=== PATIENT | female | born 1980 | race African-American/Black ===

== ENCOUNTER 2023-02-25 08:08 | Outpatient (CLI) | payer OTHER, SELFPAY ==
[2023-02-25 08:37] LABS: Hematocrit 37.7 % (37.0-47.0); Hemoglobin 11.7 g/dL (12.0-15.0); Mean Corpuscular Hemoglobin 26.3 pg (26-34); Mean Corpuscular Volume 84.7 fl (80-100); Mean Platelet Volume 8.9 fl (7.4-10.4); Platelet Count Result 445 k/mm3 (150-375); Red Blood Count 4.45 M/mm3 (4.2-5.4); Red Cell Distribution Width 15.2 % (11.5-14.5); White Blood Count 5.9 K/mm3 (4.5-10.0)
== END 2023-02-25 08:09 | disposition home or self-care (01) ==
LOC: ANHSURGERY 08:13
PROVIDERS: Visit Provider Student in an Organized Health Care Education/Training Program
DX: Z01.812 Encounter for preprocedural laboratory examination (principal); N83.209 Unspecified ovarian cyst, unspecified side
CPT/HCPCS: 36415; 85027; 86850; 86900; 86901

== ENCOUNTER 2023-02-27 00:50 | Day surgery (SDC) | payer OTHER, SELFPAY ==
[2023-02-19 14:57] VITALS: BMI 32.3
--- NOTE | 2023-02-19 15:01 | PC.NURSE ---
Report to the Outpatient Waiting Room, entrance under the green pavilion located off [facility], at time 12:00 on date 02/27/23. Planned Procedure Time: 2:00. Time changes happen often and if your time is changed the preop area will call you the afternoon before. - You and your visitor will be asked to self-screen and do not enter if you have any COVID symptoms. - A mask is optional within the hospital at this time. Patients may have clear liquids (water, carbonated beverages, clear teas, apple juice) until 3 hours prior to surgery (11:00) with a maximum of 20 ounces. - No food from midnight until time of surgery Take the following medications with a SIP of water the morning of surgery: PAIN PILL IF NEEDED DO NOT STOP ANY OF YOUR OTHER PRESCRIPTION MEDICATIONS PRIOR TO SURGERY EXCEPT THE FOLLOWING Medications to discontinue per physician: IBUPROFEN Date to take last dose: PER DR. DE LEON Please no make-up, nail ukrainian, hairspray, perfume, deodorant, or body powder the day of surgery. No jewelry (including any body piercings) or valuables the day of surgery, leave them at home. Please take a shower or bath the night before, or the morning of, surgery with an antibacterial soap. Wear comfortable, loose fitting clothing. - Jewelry must be removed prior to entering the operating room. Rings and piercings that are not removed may be cut off. - The hospital will not accept responsibility for valuables. - Please leave all valuables, including medications, at home the day of surgery. If you are going home after surgery, a licensed tow car driver must drive you home. - NO public transportation without another adult if you receive anesthesia. - We recommend that an adult stay with you for 24 hours following discharge. - We also recommend that you do not drive, make important decision, drink alcoholic beverages, or take any drugs that were not prescribed by your health care provider for at least 24 hours after your discharge time. Follow any additional instructions given to you from your surgeon. If you or anyone in your household have experienced Covid symptoms in the past week, please notify your surgeon or the nurse liaison at the phone number below for possible testing. Telephone instructions given to PT - TREY SOLIS and asked if any additional questions and then verbalized understanding. Patient advised to call surgeon office or pre surgery nurse liaison [phone] if any additional questions.
[2023-02-27] VITALS (9 sets, daily range): BP systolic 108–159; BP diastolic 66–96; PULSE 87–113; RESP 12–30; TEMP 36.3; O2SAT 100; BMI 32.5
--- NOTE | 2023-02-27 07:45 | PM.IMHP ---
H&P: HPI History of Present Illness Date/Time: 02/27/23 07:45 Chief Complaint: pelvic pain ovarian cyst Narrative: 42-year-old female who presents for laparoscopic ovarian cystectomy. Patient was seen in the office and complained of pelvic pain. Patient was also having heavy and painful menses. Pelvic ultrasound shows an enlarged cyst on the left ovary. Images suspicious for possible endometrioma. Patient was also found to have uterine fibroids. Review of Systems Cardiovascular: Cardiovascular: Denies chest pain, Denies leg edema, Denies palpitations, Denies dyspnea and Denies dyspnea on exertion Respiratory: Respiratory: Denies cough, Denies dyspnea and Denies dyspnea on exertion Gastrointestinal: Gastrointestinal: Denies abdominal pain, Denies constipation, Denies diarrhea, Denies nausea and Denies vomiting Genitourinary: Genitourinary: Denies hematuria, Denies urinary frequency, Denies dysuria, Denies pelvic pain, Denies urinary incontinence and Denies vaginal discharge Neurologic: Reports system reviewed and no additional complaints, except as documented Psychiatric: Psychiatric: Reports no additional psychiatric complaints Endocrine: Endocrine: Denies palpitations PMFSH Past Medical History Medical History Screening for breast cancer Surgical History Surgical History History of delivery Family History Family History Other Breast cancer Social History Social History Smoking status: Current every day smoker Tobacco type: e-cigarettes/vaping Alcohol intake: current Alcohol use details: RARE Substance use: current Substance use type: marijuana Living arrangements: with family Additional living arrangements comments: CHILDREN Occupation/Education: occupation Gender identity (if verbalized by the patient): Female Sexual Orientation (if Verbalized by the Patient): Straight or Heterosexual Spiritual care concerns: No Meds Home Medications and Allergies Home Medications Medication Instructions Recorded Confirmed Type hydrocodone 5 mg-acetaminophen 325 1 tablet PO Q8H PRN pain #28 tabs 01/16/23 02/19/23 Rx mg tablet ibuprofen 600 mg tablet 600 mg PO QID PRN Pain 02/19/23 02/19/23 History Allergies Allergy/AdvReac Type Severity Reaction Status Date / Time Penicillins Allergy Mild Hives Verified 02/19/23 14:56 Exam Const: General: no acute distress Eyes: EOM: EOMs intact bilaterally Neck: Neck: supple Thyroid: thyroid normal Chest: Breast/axilla inspection: normal inspection of the breasts Breast/axilla palpation: normal palpation of the breasts, normal palpation of the axillae and no axillary lymphadenopathy Resp: Effort & Inspection: normal respiratory effort Auscultation: clear to auscultation bilaterally Cardio: Rate: regular rate Rhythm: regular rhythm GI: Inspection: non-distended GI Palp: Yes Soft to palpation, No Tenderness to palpation present (GI) and No Guarding due to palpation present (GI) Auscultation: normal bowel sounds : General: No bladder normal to palpation External Female Exam: normal external appearance Speculum Exam - Vagina: normal vaginal discharge and No vaginal bleeding Speculum Exam - Cervix: nontender Bimanual exam- vagina & uterus: No bladder normal to palpation and No Cervical tenderness present OB/external & speculum: No vaginal bleeding Skin: General skin exam: normal color and no rashes or lesions noted Neuro: Cognition (Neuro): normal cognition Speech: normal speech Extrem: General: normal to inspection and no edema Psych: Mental Status: mental status grossly normal Affect: normal affect Assessment and Plan Assessment and plan (1) Ovarian cyst: Code(s): N83.209 - Unspeci
--- NOTE | 2023-02-27 07:52 | WPDHPUPDATE1 ---
History and Physical Update Update Date/Time: 02/27/23 07:52 History and Physical has been reviewed, including an updated exam of the patient. There are NO changes in the patient's condition. Risks, benefits, and alternatives have been discussed and questions answered. Patient agrees to proceed with procedure.
[2023-02-27] MEDS: LACTATED RINGERS 1,000 ML 30 ML IV CONT ×2 (11:55→15:21)
--- NOTE | 2023-02-27 12:06 | WPDANESEPPF ---
Anes - Initial Pre Proc Eval Procedure: Operation Date: 02/27/23 13:00 Proposed Procedures p Laparoscopic Left Ovarian Cystectomy - Adalid Abbott MD Date/Time: 02/27/23 12:06 Surgeon: Adalid Abbott MD Pre Op Diagnosis: left ovarian cyst Patient Data Age: 42 Gender: F Height: 1.71 m Weight: 95.25 kg Allergies Allergy/AdvReac Type Severity Reaction Status Date / Time Penicillins Allergy Mild Hives Verified 02/27/23 12:07 Home Medications Medication Instructions Recorded Confirmed Type hydrocodone 5 mg-acetaminophen 325 1 tablet PO Q8H PRN pain #28 tabs 01/16/23 02/19/23 Rx mg tablet ibuprofen 600 mg tablet 600 mg PO QID PRN Pain 02/19/23 02/19/23 History Patient hx anesthesia problems: none Family hx anesthesia problems: none Results Review: All pre-operative results and documents have been reviewed as part of the pre-operative evaluation. [facility] Past Medical History Medical History (Updated 02/27/23 @ 12:06 by Sunny Collazo MD) Diabetes Obesity Screening for breast cancer Surgical History Surgical History History of delivery Family History Family History Other Breast cancer Social History Social History Smoking status: Current every day smoker Tobacco type: e-cigarettes/vaping Alcohol intake: current Alcohol use details: RARE Substance use: current Substance use type: marijuana Living arrangements: with family Additional living arrangements comments: CHILDREN Occupation/Education: occupation Gender identity (if verbalized by the patient): Female Sexual Orientation (if Verbalized by the Patient): Straight or Heterosexual Spiritual care concerns: No Anes - Eval Final PreProcedure Day of Procedure 02/27/23 12:06 Patient weight: obese Heart: regular rate and rhythm Lungs: clear to auscultation Airway: Mallampati scale class II Neurological: alert and oriented Last oral intake: >/= 8 hours ASA classification: II Emergent: no Anesthetic plan: proceed Anesthesia type and monitoring: general LMA and standard monitoring Results Review: All pre-operative results and documents have been reviewed as part of the pre-operative evaluation. Informed Consent: The patient's anesthetic plan and its attendant risks and benefits were discussed with the patient/family/POA. Questions were solicited and answers provided to the satisfaction of the patient/family/POA.
[2023-02-27] MEDS: KETOROLAC 15 MG/ML VIAL (*BKC) IV PUSH (12:12)
[2023-02-27] MEDS: SCOPOLAMINE 1.5 MG PATCH TRANSDERM ×2 (12:13→15:55)
[2023-02-27] MEDS: ACETAMINOPHEN 500 MG TABLET 1000 MG PO (12:13)
[2023-02-27] MEDS: LIDO 1%/EPINEPHRINE 1:100,000 50 ML VIAL 20 ML INFILTRATE (13:39)
--- NOTE | 2023-02-27 14:31 | W.PM.PROC2 ---
Procedure Note - Detailed Date of Procedure 02/27/23 Pre-op Diagnosis left ovarian cyst Post-op Diagnosis Same Procedure Performed left oophorectomy Surgeon Adalid Abbott MD Anesthesia General Indications enlarged left ovarian cyst Findings left sided endometrioma dense adhesive disease endometriosis fibroid uterus Description of Procedure The patient was taken to the operating room where general endotracheal anesthesia was undertaken and found to be adequate. She was then prepped and draped in the dorsal lithotomy position and placed in adjustable stirrups. A pre-operative team brief and a time out were completed. A catheter was placed to drain the bladder. Retractors were placed placed in the vagina and the cervix was identified. An acorn uterine manipulator was placed. {Attention was then turned to the abdomen which was anesthetized umbilically with injected anesthestic. A 5 mm skin incision was made in the umbilicus. A 5 mm optical trocar was then placed with direct camera visualization of the abdominal layers during placement. The trocar stylet was removed and the camera was used to verify intra-abdominal placement. CO2 insufflation was then connected and resumed. The pelvis was inspected. A left lower quadrant 5 mm port was placed, in addition to a right lower quadrant 5 port in the standard fashion after using local anesthetic. The pelvis was inspected. The above findings were noted. The left ovary was enlarged. The ovarian cyst was adherent in the ovarian fossa and to the uterine serosa. There were omental adhesions loosely to the ovarian capsule. Adhesions were taken down sharply and bluntly with monopolar scissors. An incision was made over the ovarian capsule and into the cyst wall. Dark brown chocolate like fluid was extracted from the cyst. After the cyst was drained, attempt was made to pull the cyst wall from the ovarian capsule. After incision of the ovarian capsule, visualization was inhibited due to bleeding. visualization and full manipulation of the ovary was limited by adhesive disease. Given the ovarian involvement of the cyst and the adhesions to the ovarian fossa, decision was made to proceed with oophorectomy. The peritoneum was the left side wall was opened. The left infundibulopelvic ligamnet was identified. The ligament was ligated and transected using the ligasure device. Dissection away from the adhesions and the pelvic side was was continued around the cyst with the ligasure device. The ovary and cyst was from the ovarian artery and uterus. The umbilical incision was converted to a 10 mm incision and an endopoush was introduced. The specimen was removed from the abdomen through the umbilical port in a endopouch. The surgical site was inspected. There was oozing blood noted that was made hemostatic with hemaderm. The pelvis was copiously irrigated and cleared of all clot and debris. All surgical beds were noted to be hemostatic. A Bret-Meaghan was used to closed the umbilical fascial defect with an interrupted suture of 0-vicryl under direct visualization. Sponge, lap and needle counts were correct. All skin incisions were closed with 4-0 Vicryl suture subcuticularly. The uterine manipulator was removed from the uterus. Hemostasis of the cervix was noted. The urinary catheter was removed. The patient was taken out of dorsal lithotomy position. Anesthesia was reversed. The patient was taken to the PACU. Estimated Blood Loss 100 Urine Output 25 Drains No Packing No Pathology Yes (left ovary and ovarian cyst) Complications No immediate complications Condition Stable Disposition PACU [facility] Billing Surgery - Charge Forward: Surgery Billing
[2023-02-27] MEDS: fentaNYL CITRATE INJ (*CRX) 100 MCG/2 ML VIAL 25 MCG IV PUSH ×4 (15:00→16:05)
[2023-02-27] MEDS: ONDANSETRON INJ 4 MG/2 ML VIAL IV PUSH (15:12)
[2023-02-27] MEDS: HALOPERIDOL LACTATE 5 MG/ML VIAL 1 MG IV PUSH (15:53)
--- NOTE | 2023-02-27 16:06 | SUR.PHASEI ---
RN didn't realize patient already had a scop patch on behind left ear. So that patch was coming off so the new patch is behind the Right ear.
== END 2023-02-27 17:10 | disposition home or self-care (01) ==
PROVIDERS: Visit Provider Student in an Organized Health Care Education/Training Program
PROC: (CPT 49320; principal; 2023-02-27 13:00)
DX: N83.12 Corpus luteum cyst of left ovary (principal); N80.102 Endometriosis of left ovary, unspecified depth; N73.6 Female pelvic peritoneal adhesions (postinfective); E11.9 Type 2 diabetes mellitus without complications; E66.9 Obesity, unspecified; Z68.32 Body mass index [BMI] 32.0-32.9, adult; F17.290 Nicotine dependence, other tobacco product, uncomplicated; F12.90 Cannabis use, unspecified, uncomplicated
CPT/HCPCS: 58661; 88305; A9270; J0360; J1100; J1630; J1885; J2250; J2405; J2704; J2710; J3010; J7030; J7120

== ENCOUNTER 2024-07-05 12:37 | Outpatient (CLI) | payer OTHER, SELFPAY ==
[2024-07-05 14:09] LABS: Hematocrit 36.9 % (37.0-47.0); Hemoglobin 11.2 g/dL (12.0-15.0); Mean Corpuscular HGB Conc 30.4 g/dl (32-36); Mean Corpuscular Hemoglobin 25.3 pg (26-34); Mean Corpuscular Volume 83.5 fl (80-100); Mean Platelet Volume 9.6 fl (7.4-10.4); Platelet Count Result 401 k/mm3 (150-375); Red Blood Count 4.42 M/mm3 (4.2-5.4); Red Cell Distribution Width 16.2 % (11.5-14.5); White Blood Count 6.7 K/mm3 (4.5-10.0)
== END 2024-07-05 12:38 | disposition home or self-care (01) ==
PROVIDERS: Visit Provider Student in an Organized Health Care Education/Training Program
DX: N93.9 Abnormal uterine and vaginal bleeding, unspecified (principal); Z01.818 Encounter for other preprocedural examination
CPT/HCPCS: 36415; 85027; 86850; 86900; 86901

== ENCOUNTER 2024-07-06 02:24 | Day surgery (SDC) | payer OTHER, SELFPAY ==
[2024-06-28 11:33] VITALS: BMI 30.6
--- NOTE | 2024-06-28 11:34 | PC.NURSE ---
Report to the Outpatient Waiting Room, entrance under the green pavilion located off [facility], at time _1130_ on date _[id number]_. Planned Procedure Time: _130pm_.? Time changes happen often and if your time is changed the preop area will call you the afternoon before. - You and your visitor will be asked to self-screen and do not enter if you have any COVID symptoms. Please call surgeon if you need to reschedule. - A mask is optional within the hospital at this time. Patients may have clear liquids (water, carbonated beverages, clear teas, apple juice) until 3 hours prior to surgery with a maximum of 20 ounces. - No food from midnight until time of surgery and no smoking Take only the following medications with a SIP of water on the morning of surgery: ___Slynd DO NOT STOP ANY OF YOUR OTHER PRESCRIPTION MEDICATIONS PRIOR TO SURGERY EXCEPT THE FOLLOWING Medications to discontinue per physician ____Vitamin E and Vitamin D3 Date to take last lfjo___[id number] Please no make-up, nail bolivian, hairspray, perfume, deodorant, or body powder the day of surgery.? No jewelry (including any body piercings) or valuables the day of surgery, leave them at home.? Please take a shower or bath the night before, or the morning of, surgery with an antibacterial soap.? Wear comfortable, loose fitting clothing.? - Jewelry must be removed prior to entering the operating room.? Rings and piercings that are not removed may be cut off. - The hospital will not accept responsibility for valuables.? - Please leave all valuables, including medications, at home the day of surgery. If you are going home after surgery, a licensed guard driver must drive you home.? - NO public transportation without another adult if you receive anesthesia. - We recommend that an adult stay with you for 24 hours following discharge. - We also recommend that you do not drive, make important decision, drink alcoholic beverages, or take any drugs that were not prescribed by your health care provider for at least 24 hours after your discharge time. Follow any additional instructions given to you from your surgeon. Telephone instructions given to ___Nereida___and asked if any additional questions and then verbalized understanding. Patient advised to call surgeon office or pre surgery nurse liaison [phone] if any additional questions.
--- NOTE | 2024-07-06 07:20 | PM.IMHP ---
H&P: HPI History of Present Illness Date/Time: 07/06/24 07:20 Chief Complaint: abnormal uterine bleeding fibroid uterus pelvic pain ovarian cyst Narrative: 44-year-old female who presents for robotic assisted TLH /BS for management of abnormal uterine bleeding and pelvic pain secondary to fibroid uterus. Patient was evaluated in the ED in April for acute onset abdominal pain. Patient had a CT scan which showed an enlarged uterus with multiple uterine fibroids. Patient was also noted to have a 2.6 cm cyst on her right ovary. Patient has a known history of uterine fibroids. Patient underwent left oophorectomy last year due to enlarged ovarian cyst. Patient also reports that her menses have been extremely heavy and painful. Patient is requesting surgical management. Review of Systems Cardiovascular: Cardiovascular: Denies chest pain, Denies leg edema, Denies palpitations, Denies dyspnea and Denies dyspnea on exertion Respiratory: Respiratory: Denies cough, Denies dyspnea and Denies dyspnea on exertion Gastrointestinal: Gastrointestinal: Denies abdominal pain, Denies constipation, Denies diarrhea, Denies nausea and Denies vomiting Genitourinary: Genitourinary: Denies hematuria, Denies urinary frequency, Denies dysuria, Denies pelvic pain, Denies urinary incontinence and Denies vaginal discharge Neurologic: Reports system reviewed and no additional complaints, except as documented Psychiatric: Psychiatric: Reports no additional psychiatric complaints Endocrine: Endocrine: Denies palpitations PMFSH Past Medical History Medical History Diabetes Obesity Screening for breast cancer Vaginal discharge Surgical History Surgical History H/O ovarian cystectomy History of delivery Family History Family History Other Breast cancer Social History Social History Smoking status: Current every day smoker Tobacco type: e-cigarettes/vaping Alcohol intake: former Alcohol use details: RARE Substance use: never Substance use type: marijuana Do You Feel Safe in your Home?: Yes Lack of Transportation: No Lack of Food: Never True Current Housing: I Have Housing Concerned About Future Housing: No Difficulty Paying Gas/Electric Bills: No Difficulty Paying for Meds: No Currently Unemployed: No Education: Bachelor's Degree Difficulty w/ Childcare or Family Care: No Living arrangements: with family Additional living arrangements comments: CHILDREN Occupation/Education: occupation Gender identity (if verbalized by the patient): Female Sexual Orientation (if Verbalized by the Patient): Straight or Heterosexual Spiritual care concerns: No Meds Home Medications and Allergies Home Medications Medication Instructions Recorded Confirmed Type drospirenone (contraceptive) 4 mg 1 tablet PO DAILY #28 tabs 05/04/24 06/28/24 Rx (28) tablet (Slynd) cholecalciferol (vitamin D3) 25 25 mcg PO DAILY 06/28/24 06/28/24 History mcg (1,000 unit) tablet (Vitamin D3) vitamin E 400 unit tablet 400 unit PO DAILY 06/28/24 06/28/24 History Allergies Allergy/AdvReac Type Severity Reaction Status Date / Time Penicillins Allergy Mild Hives Verified 06/28/24 11:25 Exam Const: General: cooperative and comfortable Resp: Effort & Inspection: normal respiratory effort and able to speak in complete sentences Auscultation: clear to auscultation bilaterally Cardio: Rate: regular rate Rhythm: regular rhythm GI: Inspection: normal to inspection GI Palp: Yes Soft to palpation : External Female Exam: normal external appearance Speculum Exam - Vagina: normal appearance of the vagina Bimanual exam- vagina & uterus: enlarged Bimanual Exam- Adnexa, other: normal adnexae
--- NOTE | 2024-07-06 12:15 | SUR.PREOP ---
1205- Notified Dr. Cano and Dr. Abbott patient had coffee with creamer at [address]. Per Dr. Cano patient cancelled for today and will need to be rescheduled. 1215- Patient notified by Dr. Abbott cancelled for today due to consuming coffee with creamer.
== END 2024-07-06 12:15 | disposition home or self-care (01) ==
PROVIDERS: Visit Provider Student in an Organized Health Care Education/Training Program
DX: N93.9 Abnormal uterine and vaginal bleeding, unspecified (principal); N83.201 Unspecified ovarian cyst, right side; D25.9 Leiomyoma of uterus, unspecified
CPT/HCPCS: 99211; G0463; J7030